=== PATIENT | female | born 1985 | race Caucasian/White ===

== ENCOUNTER 2021-05-06 05:37 | Emergency (ER) | payer BC, SELFPAY ==
[2021-05-06 05:46] VITALS: BP 129/88; PULSE 95; RESP 16; TEMP 36.4; O2SAT 97; BMI 30.9
--- NOTE | 2021-05-06 05:54 | ECG_ITS ---
[facility] Test Date: 2021-05-06 Pat Name: Solange Linda Department: Room: Gender: Female Account Officer: : 1985 Requested By: Zach Aguilar Order Number: [id number] [place] MD: Nicholas Washington M.D. Measurements Intervals [place] Rate: 90 P: 28 NE: 155 QRS: -6 QRSD: 73 T: 38 QT: 359 QTc: 439 Interpretive Statements SINUS RHYTHM No previous ECG available for comparison Electronically Signed On 05-06-2021 15:42:23 CDT by Nicholas Washington M.D. [id number]
--- NOTE | 2021-05-06 05:54 | XRR_ITS ---
PROCEDURE INFORMATION: Exam: XR Chest Exam date and time: 05/06/2021 5:54 AM Age: 36 years old Clinical indication: Pain; Chest pressure; Additional info: Cp TECHNIQUE: Imaging protocol: XR of the chest. Views: 1 view. Total images: 1 COMPARISON: No relevant prior studies available. FINDINGS: Lungs: Unremarkable. No consolidation. Pleural spaces: Unremarkable. No pleural effusion. No pneumothorax. Heart/Mediastinum: Unremarkable. No cardiomegaly. Bones/joints: Unremarkable. XR/XR chest 1V portable [id number] IMPRESSION: No acute findings.
--- NOTE | 2021-05-06 05:55 | PC.NURSE ---
patient states has left chest pain last night that has now resolved. states did not medicate for pain so I did not mask it states rolled around all night but that now all s/s are gone. respirations even equal and unlabored. speech clear, sentences complete.
--- NOTE | 2021-05-06 06:35 | ED_ITS ---
HPI - Chest Pain General: Chief Complaint: Chest Pain Stated Complaint: Chest discomfort Time Seen by Provider: 05/06/21 05:51 Source: patient Mode of arrival: ambulatory Limitations: no limitations History of Present Illness: 36-year-old female states that she had some left- sided chest pain throughout the night. She did states that she just started working out again yesterday states that this pain felt a little different than muscular pain states it was a aching pain in her left chest she is currently pain-free denies any shortness of breath denies any history of any heart disease denies any radiation of her pain. Associated symptoms: Deny abdominal pain, dyspnea, fever(s), nausea or vomiting Review of Systems Const: Denies: fever(s), chills, body aches or change in appetite Eyes: Denies: blurry vision or eye discomfort ENMT: Denies: throat pain or dental pain Card: Reports: chest pain Resp: Denies: dyspnea GI: Denies: abdominal pain, nausea, vomiting or diarrhea : Denies: dysuria Musc: Denies: neck pain or back pain Skin/Breast: Denies: rash Neuro: Denies: headache(s) Psych: Denies: depression Walter/Lymph: Denies: easy bruising All/Imm: Denies: urticaria PFSH ED PFSH: Medical History (Updated 05/06/21 @ 07:37 by Laisha Walter MD) No pertinent past medical history Social History Smoking and tobacco status: never smoked Physical Exam Const: COMMON NORMALS: no acute distress, patient oriented x3 and healthy appearing HENMT: COMMON NORMALS: normocephalic and atraumatic HEAD & SCALP: normocephalic and atraumatic Eye: COMMON NORMALS: Equal, round and reactive pupils present and EOMs intact bilaterally PUPIL: Yes Equal, round and reactive pupils present Neck/C-Spine: COMMON NORMALS: full ROM and supple Chest: COMMONS NORMALS: normal inspection of the chest and normal palpation of entire chest wall Resp: COMMON NORMALS: normal respiratory effort, No retractions, No use of accessory muscles and clear to auscultation bilaterally AUSCULTATION: clear to auscultation bilaterally Cardio: COMMON NORMALS: regular rate, regular rhythm and No murmurs present (Cardio) RATE: regular rate RHYTHM: regular rhythm GI: COMMON NORMALS: Normal to inspection, nondistended, normoactive bowel sounds present, Soft to palpation, non-tender and no masses PALPATION: Yes Soft to palpation Extremity: COMMON NORMALS: normal to inspection and full ROM Neuro: COMMON NORMALS: patient oriented x3, moves all extremities and no focal motor deficits Psych: COMMON NORMALS: mental status grossly normal, Normal thought process present and cooperative THOUGHT PROCESS: Normal thought process present Skin: COMMON NORMALS: no rashes or lesions noted and no wounds GENERAL SKIN EXAM: no rashes or lesions noted Course Vital Signs: Vital signs: Vital Signs Temperature 97.9 F 05/06/21 07:27 Pulse Rate 77 05/06/21 07:27 Respiratory Rate 18 05/06/21 07:27 Blood Pressure 123/94 05/06/21 07:27 Pulse Oximetry 99 05/06/21 07:27 MDM - Chest Pain Medical Decision Making Patient presents for chest pains atypical in nature initial troponin EKG x-ray here are all normal she is stable for discharge is to follow-up with her PCP and return if worsening. Lab Data : 05/06/21 06:55 05/06/21 06:55 Radiology Impressions Chest X-Ray 05/06/21 05:54 IMPRESSION: No acute findings. Laboratory Results WBC 9.6 10^3/uL (4.0-10.0) 05/06/21 06:55 RBC 4.76 10^6/uL (4.1-5.3) 05/06/21 06:55 Hgb 14.7 g/dL (11.5-15.3) 05/06/21 06:55 Hct 42.9 % (37.0-47.0) 05/06/21 06:55 MCV 90.1 fl (81-99) 05/06/21 06:55 MCH 30.9 pg (28.0-34.0) 05/06/21 06:55 MCHC 34.3 g/dL (30.0-36.0) 05/06/21 06:55 RDW 11.8 % (12.1-15.1) L 05/06/21 06:55 Plt Count 317 10^3/cmm (130-400) 05/06/21 06:55 MPV 9.0 fL (7.4-10.4) 05/06/21 06:55 Neut % (Auto) 64.3 % 05/06/21 06:55 Lymph % (Auto) 24.8 % 05/06/21 06:55 Cocke % (Auto) 6.1 % 05/06/21 06:55 Eos % (Auto) 4.1 % 05/06/21 06:55 Baso % (Auto) 0.5 % 05/06/21 06:55 Neut # (Auto) 6.17 10^3/uL (1.8-7.7) 05/06/21 06:55 Lymph # (Auto) 2.4 10^3/uL (0.8-4.8) 05/06/21 06:55 Cocke # (Auto) 0.6 10^3/uL (0.2-0.9) 05/06/21 06:55 Eos # (Auto) 0.4 10^3/uL (0.0-0.8) 05/06/21 06:55 Baso # (Auto) 0.1 10^3/uL (0.0-0.1) 05/06/21 06:55 Nucleated RBC % (auto) 0 % 05/06/21 06:55 Nucleated RBCs # 0.0 /100WBC 05/06/21 06:55 Sodium 136 mmol/L (136-145) 05/06/21 06:55 Chloride 102 mmol/L (98-107) 05/06/21 06:55 BUN 15 mg/dL (6-20) 05/06/21 06:55 Creatinine 0.7 mg/dL (0.5-0.9) 05/06/21 06:55 GFR Calculation 94.7 mL/min (90-130) 05/06/21 06:55 Glucose 110 mg/dL (65-115) 05/06/21 06:55 Calcium 8.6 mg/dL (8.5-10.5) 05/06/21 06:55 Total Bilirubin 0.4 mg/dL (0.15-1.2) 05/06/21 06:55 ALT 12 U/L (0-33) 05/06/21 06:55 Alkaline Phosphatase 58 IU/L (35-105) 05/06/21 06:55 Troponin T Baseline 6 ng/L (0-10) 05/06/21 06:55 Total Protein 7.1 g/dL (6.6-8.7) 05/06/21 06:55 Albumin 4.6 g/dL (3.5-5.2) 05/06/21 06:55 Globulin 2.5 g/dL (1.3-4.6) 05/06/21 06:55 EKG Data EKG 1: I personally reviewed and interpreted this EKG as follows: EKG interpretation date: 05/06/21 EKG interpretation time: 06:00 Interpretation: nsr hr [address] or t wave abnormalities qrs 73 qtc 406 Discharge Plan Discharge Patient Disposition: Home Clinical Impression: Chest pain Qualifiers: Chest pain type: unspecified Qualified Code(s): R07.9 - Chest pain, unspecified Condition: Stable Prescriptions: No Action cephalexin 500 mg capsule 500 mg PO BID 7 Days Qty: 14 0RF triamcinolone acetonide 0.1 % cream 1 applic topical BID 7 Days Qty: 80 0RF Discharge Orders: Discharge ED (Routine); Ordered 05/06/21 Ordered By: Laisha Walter Discharge Diet: Advance as tolerated Discharge Activity: Resume usual activity Patient Instructions: Chest Pain (ED) Coding Level of Care Code ED Manager Of Training for Chg Fwd Exam Comprehensive
[2021-05-06 07:04] LABS: Basophils # 0.1 10^3/uL (0.0-0.1); Basophils % 0.5 %; Eosinophils # 0.4 10^3/uL (0.0-0.8); Eosinophils % 4.1 %; Hematocrit 42.9 % (37.0-47.0); Hemoglobin 14.7 g/dL (11.5-15.3); Lymphocytes # 2.4 10^3/uL (0.8-4.8); Lymphocytes % 24.8 %; Mean Corpuscular HGB Conc 34.3 g/dL (30.0-36.0); Mean Corpuscular Hemoglobin 30.9 pg (28.0-34.0); Mean Corpuscular Volume 90.1 fl (81-99); Monocytes # 0.6 10^3/uL (0.2-0.9); Monocytes % 6.1 %; Neutrophils # 6.17 10^3/uL (1.8-7.7); Neutrophils % 64.3 %; Nucleated Red Blood Cells % 0 %; Platelet Count 317 10^3/cmm (130-400); Red Blood Count 4.76 10^6/uL (4.1-5.3); Red Cell Distribution Width 11.8 % (12.1-15.1); White Blood Count 9.6 10^3/uL (4.0-10.0)
[2021-05-06 07:27] VITALS: BP 123/94; PULSE 77; RESP 18; TEMP 36.6; O2SAT 99
[2021-05-06 07:31] LABS: Alanine Aminotransferase 12 U/L (0-33); Albumin Level 4.6 g/dL (3.5-5.2); Alkaline Phosphatase 58 IU/L (35-105); Blood Urea Nitrogen 15 mg/dL (6-20); Calcium 8.6 mg/dL (8.5-10.5); Carbon Dioxide 19 mmol/L (22-29); Chloride 102 mmol/L (98-107); Globulin 2.5 g/dL (1.3-4.6); Glomerular Filtration Rate 94.7 mL/min (90-130); Glucose 110 mg/dL (65-115); Osmolality Calculated 283 mOsm/kg (285-295); Sodium 136 mmol/L (136-145); Total Bilirubin 0.4 mg/dL (0.15-1.2); Total Protein 7.1 g/dL (6.6-8.7); Troponin(5th) Baseline 6 ng/L (0-10)
[2021-05-06 07:40] LABS: Anion Gap 19.3 (5-19); Aspartate Amino Transferase 18 U/L (0-32); Potassium 4.3 mmol/L (3.5-5.1)
[2021-05-06 07:44] VITALS: BP 126/71; PULSE 71; RESP 16; TEMP 36.2
== END 2021-05-06 07:46 | disposition home or self-care (01) ==
PROVIDERS: Emergency Medicine; Emergency Provider Emergency Medicine
DX: R07.9 Chest pain, unspecified (principal)
CPT/HCPCS: 71045; 80053; 84484; 85025; 93005; 99283

== ENCOUNTER → 2021-08-23 16:25 | Outpatient (BNVA) | payer BC, SELFPAY | PROVIDERS: Visit Provider Family Medicine | DX: J02.9 Acute pharyngitis, unspecified (principal) | CPT/HCPCS: 87071; 87880 ==